=== PATIENT | female | born 1985 | race African-American/Black ===

== ENCOUNTER 2016-12-28 19:55 | Emergency (ER) | payer OTHER ==
[~2016-12-28] VITALS: Ht 157.5 cm; Wt 75.8 kg
[~2016-12-28 19:55] MED LIST: ADVIL LIQUI-GE200 MG PO; ASPIRIN325; BACTRIM DS TAB1 EACH PO; COMPAZINE5 MG PO; DOXYCYCLINE 10100 MG PO; FLAGYL500 MG PO; LEVAQUIN 750 M750 MG PO; LOPERAMIDE 2 MG2 M1 PO; MEDROLDOSEPACK PO; NOHOMEMEDICATIONS; NORCO 5-325 TA1 EACH PO; PERCOCET 5-3251 EACH PO; PREDNISONE 20 M20 MG PO; TESSALON PERLE100 MG PO; TRAMADOL 50 MG50 MG PO; ULTRAM 50MG TAB50 MG PO; VENTOLIN HFA INH8 GM IH; ZOFRAN ODT4 MG PO
[2016-12-28 20:53] LABS: URINE BILIRUBIN NEGATIVE (Negative); URINE BLOOD 1+ (Negative); URINE COLOR YELLOW; URINE GLUCOSE-RANDOM* NEGATIVE (Negative); URINE KETONES 1+ (Negative); URINE LEUKOCYTES-REFLEX NEGATIVE (Negative); URINE PROTEIN (DIPSTICK) NEGATIVE (Negative); URINE UROBILINOGEN 0.2 E.U./dl (0.2-1.0)
[2016-12-28 21:00] LABS: SQUAMOUS >10 Many /LPF (0-3)
[2016-12-28 21:02] LABS: HYALINE CASTS 0-3 Few /LPF (None Seen); URINE WBC-REFLEX 6-15 Few /HPF (0-5)
[2016-12-28 21:03] LABS: CRYSTALS None Seen /LPF (None Seen); URINE RBC 3-10 Few /HPF (0-2); WBC CLUMPS Few (None Seen)
[2016-12-28 22:25] VITALS: BP 142/90
[2016-12-30 20:07] LABS: CHLAMYDIA TRACHOMATIS-PCR Negative (Negative); NEISSERIA GONORRHEA-PCR Negative (Negative)
== END 2016-12-28 21:15 | disposition home or self-care (01) ==
LOC: ER 19:55
PROVIDERS: Physician Assistant
DX: N39.0 Urinary tract infection, site not specified (principal); N76.0 Acute vaginitis; B96.89 Other specified bacterial agents as the cause of diseases classified elsewhere; J42 Unspecified chronic bronchitis; F17.210 Nicotine dependence, cigarettes, uncomplicated; F10.99 Alcohol use, unspecified with unspecified alcohol-induced disorder

== ENCOUNTER 2018-03-18 11:07 | Emergency (ER) | payer OTHER ==
[~2018-03-18] VITALS: Ht 157.5 cm; Wt 70.3 kg
[2018-03-18 12:13] LABS: ABSOLUTE NEUTROPHILS 5.2 thou/uL (1.4-8.2); BASOPHILS 0.6 % (0.0-2.0); EOSINOPHILS 1.7 % (0.0-3.0); HEMATOCRIT 37.9 % (37.0-47.0); HEMOGLOBIN 12.9 gm/dL (12.0-15.0); LYMPHOCYTES 29.2 % (24.0-44.0); MCHC 34.1 g/dL (28.0-37.0); MCV 87.9 fL (80.0-100.0); MONOCYTES 7.9 % (1.0-8.0); PLATELET COUNT 266 thou/uL (150-400); POLYS 60.6 % (36.0-66.0); RBC 4.31 mil/uL (4.20-5.00); RDW 14.3 % (10.5-14.5); WBC 8.6 thou/uL (4.0-11.0)
[2018-03-18 12:33] LABS: CALCIUM 9.7 mg/dL (8.5-10.1); CREATININE 0.8 mg/dL (0.6-1.0); POTASSIUM 3.4 mmol/L (3.5-5.1)
[2018-03-18] MEDS ORDERED: BACTRIM DS TAB1 EACH PO (14:25)
[2018-03-18] MEDS ORDERED: NORCO 5-325 TA1 EACH PO (14:25)
[2018-03-18 14:48] VITALS: BP 141/93
== END 2018-03-18 14:47 | disposition home or self-care (01) ==
LOC: ER 11:07
PROVIDERS: Nurse Practitioner Family
DX: K61.1 Rectal abscess (principal); J42 Unspecified chronic bronchitis; F17.210 Nicotine dependence, cigarettes, uncomplicated

== ENCOUNTER 2019-09-10 11:15 | Emergency (ER) | payer OTHER ==
[~2019-09-10] VITALS: Ht 157.5 cm; Wt 70.3 kg
[2019-09-10] MEDS ORDERED: NORCO 5-325 TA1 EAC1 PO (13:28)
[2019-09-10 14:02] VITALS: BP 147/107
== END 2019-09-10 14:03 | disposition home or self-care (01) ==
LOC: ER 11:15
DX: S62.397A Other fracture of fifth metacarpal bone, left hand, initial encounter for closed fracture (principal); S62.395A Other fracture of fourth metacarpal bone, left hand, initial encounter for closed fracture; M25.562 Pain in left knee; F17.210 Nicotine dependence, cigarettes, uncomplicated; X58.XXXA Exposure to other specified factors, initial encounter; Y93.89 Activity, other specified; Y92.89 Other specified places as the place of occurrence of the external cause; Y99.8 Other external cause status